=== PATIENT | male | born 1980 | race Caucasian/White ===

== ENCOUNTER 2022-11-28 04:41 | Day surgery (SDC) | payer OTHER, BC ==
[2022-11-26 16:18] VITALS: BMI 35.9
[2022-11-28 11:45] VITALS: RESP 15; TEMP 97.5
[2022-11-28 12:15] VITALS: BP 107/82; PULSE 82
== END 2022-11-28 11:00 | disposition home or self-care (01) ==
LOC: JASU-ENDO 04:41
PROVIDERS: ATTEND Internal Medicine Gastroenterology
PROC: 0DJD8ZZ Inspection of Lower Intestinal Tract, Via Natural or Artificial Opening Endoscopic (ICD-10-PCS; principal; 2022-11-28 09:20)
DX: Z12.11 Encounter for screening for malignant neoplasm of colon (principal); K92.1 Melena; K64.8 Other hemorrhoids; Z86.010 Personal history of colon polyps; Z80.0 Family history of malignant neoplasm of digestive organs; Z83.71 Family history of colonic polyps